=== PATIENT | male | born 1970 | race Caucasian/White ===

== ENCOUNTER 2024-05-27 14:23 | Inpatient (IN) | payer MEDICARE, OTHER ==
[~2024-05-27] VITALS: Ht 170.2 cm; Wt 68.0 kg
[2024-05-27 15:32] LABS: BASOPHILS % (AUTO) 0.5 % (0.0-2.0); EOSINOPHILS # (AUTO) 0.2 K/uL (0.0-0.7); EOSINOPHILS % (AUTO) 2.7 % (0.0-6.0); HEMATOCRIT 42 % (39-51); HEMOGLOBIN 14.7 g/dL (13.5-17.5); LYMPHOCYTES # (AUTO) 1.2 K/uL (0.8-4.8); LYMPHOCYTES % (AUTO) 17.7 % (20.0-44.0); MEAN CORPUSCULAR HEMOGLOBIN 35 PG (26.0-33.0); MEAN CORPUSCULAR HGB CONC 35 g/dl (31.0-36.0); MEAN CORPUSCULAR VOLUME 99 fL (80-96); MONOCYTES # (AUTO) 0.6 K/uL (0.1-1.30); NEUTROPHILS # (AUTO) 4.9 K/uL (1.8-8.9); NEUTROPHILS % (AUTO) 71.1 % (43.0-81.0); PLATELET COUNT (AUTO) 209 K/uL (150-450); RED BLOOD CELL COUNT(AUTO) 4.19 MIL/uL (4.5-6.0); RED CELL DISTRIBUTION WIDTH 14.2 % (11.5-15.0); WHITE BLOOD COUNT (AUTO) 6.9 K/uL (4.3-11.0)
[2024-05-27 15:56] LABS: CALCIUM, SERUM 9.2 mg/dL (8.5-10.1); CARBON DIOXIDE 29 mmol/L (21-32); CHLORIDE 107 mmol/L (98-107); CREATININE 1.1 mg/dL (0.6-1.3); GLUCOSE 63 mg/dL (74-106); SODIUM SERUM 142 mmol/L (136-145); UREA NITROGEN, BLOOD 16 mg/dL (7-18)
[2024-05-27 16:01] LABS: ALANINE AMINOTRANSFERASE 22 U/L (12-78); ALBUMIN 3.7 g/dL (3.4-5.0); ALCOHOL, BLOOD < 3 mg/dL (0-10); ALKALINE PHOSPHATASE 77 U/L (46-116); ASPARTATE AMINOTRANSFERASE 19 U/L (15-37); BILIRUBIN,DIRECT 0.1 mg/dL (0.0-0.2); BILIRUBIN,TOTAL 0.2 mg/dL (0.2-1.0); TOTAL PROTEIN, SERUM 6.8 g/dL (6.4-8.2)
[2024-05-27 16:02] LABS: ACETAMINOPHEN <10 ug/ml (10-30); SALICYLATE 1.4 mg/dL (2.8-20.0)
[2024-05-27] MEDS ORDERED: DIVA-76 PO (16:37)
[2024-05-27] MEDS ORDERED: DOCU100C36 PO (16:37)
[2024-05-27] MEDS ORDERED: CLOZ200T PO (16:37)
[2024-05-27] MEDS ORDERED: ACET325T53 PO (16:37)
[2024-05-27] MEDS ORDERED: BENZ-38 PO (16:37)
[2024-05-27] MEDS ORDERED: MAGN400O6 PO (16:37)
[2024-05-27] MEDS ORDERED: MAG30ORA PO (16:37)
[2024-05-27 16:50] LABS: APPEARANCE,URINE CLEAR (CLEAR); BILIRUBIN,URINE NEGATIVE (NEGATIVE); BLOOD, URINE NEGATIVE Ery/uL (NEGATIVE); COLOR,URINE YELLOW (YELLOW); KETONES,URINE NEGATIVE (NEGATIVE); LEUKOCYTE ESTERASE ,URINE NEGATIVE (NEGATIVE); NITRITE, URINE NEGATIVE (NEGATIVE); PH,URINE 6.5 (5.0-8.0); PROTEIN,URINE NEGATIVE (NEGATIVE); UGLUCOSE NEGATIVE (NEGATIVE); UROBILINOGEN,URINE 0.2 EU/dL (0.2)
[2024-05-27 17:07] LABS: AMPHETAMINE, URINE NEGATIVE (NEGATIVE); BARBITURATE, URINE NEGATIVE (NEGATIVE); CANNABINOID, URINE NEGATIVE (NEGATIVE); COCCAINE, URINE NEGATIVE (NEGATIVE); OPIATE, URINE NEGATIVE (NEGATIVE); PHENCYCLIDINE SCREEN,URINE NEGATIVE (NEGATIVE)
[2024-05-27] MEDS ORDERED: VALPROIC ACID 250 MG/5 ML UDC ONE (17:14)
[2024-05-27] MEDS: VALPROIC ACID 250 MG/5 ML UDC PO ONE (17:15)
[2024-05-27 17:16] LABS: BENZODIAZEPINE, URINE NEGATIVE (NEGATIVE)
[2024-05-27 20:09] VITALS: O2SAT 100
[2024-05-27 21:30] VITALS: BP 125/59; TEMP 97.9; O2SAT 98
[2024-05-27] MEDS ORDERED: MAG HYDROX/AL HYDROX/SIMETH 30 ML UDC PO PRN (22:00)
[2024-05-27] MEDS ORDERED: MAGNESIUM HYDROXIDE 30 ML UDC PO PRN (22:00)
[2024-05-27] MEDS ORDERED: ACETAMINOPHEN 325 MG TABLET PO PRN (22:00)
[2024-05-28] MEDS ORDERED: MAG HYDROX/AL HYDROX/SIMETH 30 ML UDC PO PRN
[2024-05-28] MEDS ORDERED: TEMAZEPAM 7.5 MG CAPSULE PO PRN ×2
[2024-05-28] MEDS ORDERED: ACETAMINOPHEN 325 MG TABLET PO PRN
[2024-05-28] MEDS ORDERED: MAGNESIUM HYDROXIDE 30 ML UDC PO PRN
[2024-05-28] MEDS: BLOOD SUGAR DIAGNOSTIC 1 EACH STRIP IN ONE (00:13)
[2024-05-28 07:44] LABS: CHOLESTEROL 175 mg/dL (<200); HDL CHOLESTEROL 56 mg/dL (40-60); LDL 85 mg/dL (0-99); TRIGLYCERIDES 80 mg/dL (30-150)
[2024-05-28 07:47] LABS: ALBUMIN 3.8 g/dL (3.4-5.0); BILIRUBIN,TOTAL 0.3 mg/dL (0.2-1.0); CREATININE 0.9 mg/dL (0.6-1.3); POTASSIUM 4.7 mmol/L (3.5-5.1); TOTAL PROTEIN, SERUM 7.2 g/dL (6.4-8.2)
[2024-05-28] MEDS: DOCUSATE SODIUM 100 MG CAPSULE PO SCH (08:33)
[2024-05-28 09:00] VITALS: BP 121/73; TEMP 97.9; O2SAT 100
[2024-05-28] MEDS ORDERED: LORAZEPAM 0.5 MG TABLET PO PRN ×2 (12:30)
[2024-05-28 16:00] VITALS: BP 109/63; TEMP 97.6; O2SAT 99
[2024-05-28 21:07] VITALS: BP 122/57; TEMP 97.8; O2SAT 100
[2024-05-28] MEDS: DIVALPROEX SODIUM 125 MG CAP.SPRINK PO SCH (21:31)
[2024-05-28] MEDS: CLOZAPINE 100 MG TABLET PO SCH (21:32)
[2024-05-29 08:00] VITALS: BP 100/65; TEMP 98.2; O2SAT 97
[2024-05-29 16:00] VITALS: BP 103/70; TEMP 97.7; O2SAT 98
[2024-05-29 20:53] VITALS: BP 103/56; TEMP 97.9; O2SAT 99
[2024-05-30 08:00] VITALS: BP 104/55; TEMP 98.6; O2SAT 98
[2024-05-30] MEDS: BENZONATATE 100 MG CAPSULE PO PRN (08:09)
[2024-05-30 16:00] VITALS: BP 107/62; TEMP 98.6; O2SAT 100
[2024-05-30 20:14] VITALS: BP 110/63; TEMP 98.6; O2SAT 100
[2024-05-30] MEDS: CLOZAPINE 100 MG TABLET PO SCH (21:09)
[2024-05-30] MEDS: DIVALPROEX SODIUM 500 MG TABLET.DR PO SCH (21:09)
[2024-05-31 08:00] VITALS: BP 106/69; TEMP 98.7; O2SAT 100
[2024-05-31 16:00] VITALS: BP 129/74; TEMP 98.1; O2SAT 98
[2024-05-31 20:00] VITALS: BP 114/69; TEMP 97.8; O2SAT 99
[2024-06-01 08:00] VITALS: BP 111/75; TEMP 98.1; O2SAT 98
[2024-06-01 15:58] VITALS: BP 113/65; TEMP 97.9; O2SAT 98
[2024-06-01 20:00] VITALS: BP 110/72; TEMP 98.5; O2SAT 99
[2024-06-02 08:00] VITALS: BP 105/66; TEMP 97.9; O2SAT 98
[2024-06-02] MEDS: DIVALPROEX SODIUM 500 MG TABLET.DR PO SCH (12:48)
[2024-06-02 16:00] VITALS: BP 108/70; TEMP 98.1; O2SAT 99
[2024-06-02 20:00] VITALS: BP 112/63; TEMP 98.1; O2SAT 100
[2024-06-02] MEDS: CLOZAPINE 100 MG TABLET PO SCH (21:38)
[2024-06-03 08:00] VITALS: BP 113/80; TEMP 98.1; O2SAT 99
[2024-06-03 16:00] VITALS: BP_SYST 113; BP_SYST 98; BP_DIAS 62; BP_DIAS 86; TEMP 97.7; TEMP 98; O2SAT 100; O2SAT 95
[2024-06-03 19:51] VITALS: BP 120/76; TEMP 98.5; O2SAT 100
[2024-06-04 07:05] LABS: BASOPHILS % (AUTO) 0.6 % (0.0-2.0); EOSINOPHILS # (AUTO) 0.2 K/uL (0.0-0.7); EOSINOPHILS % (AUTO) 5.2 % (0.0-6.0); HEMATOCRIT 45 % (39-51); HEMOGLOBIN 15.7 g/dL (13.5-17.5); LYMPHOCYTES # (AUTO) 1.5 K/uL (0.8-4.8); LYMPHOCYTES % (AUTO) 32.2 % (20.0-44.0); MEAN CORPUSCULAR HEMOGLOBIN 35 PG (26.0-33.0); MEAN CORPUSCULAR HGB CONC 35 g/dl (31.0-36.0); MEAN CORPUSCULAR VOLUME 99 fL (80-96); MONOCYTES # (AUTO) 0.4 K/uL (0.1-1.30); MONOCYTES % (AUTO) 9.4 % (2.0-12.0); NEUTROPHILS # (AUTO) 2.5 K/uL (1.8-8.9); NEUTROPHILS % (AUTO) 52.6 % (43.0-81.0); PLATELET COUNT (AUTO) 199 K/uL (150-450); RED BLOOD CELL COUNT(AUTO) 4.55 MIL/uL (4.5-6.0); WHITE BLOOD COUNT (AUTO) 4.7 K/uL (4.3-11.0)
[2024-06-04 08:00] VITALS: BP 128/74; TEMP 97.5; O2SAT 96
[2024-06-04 16:00] VITALS: BP 123/71; TEMP 97.9; O2SAT 96
[2024-06-04 20:25] VITALS: BP 134/63; TEMP 98.2; O2SAT 98
[2024-06-05 08:00] VITALS: BP 107/76; TEMP 98.2; O2SAT 100
[2024-06-05 16:00] VITALS: BP 111/69; TEMP 98.2; O2SAT 100
[2024-06-05 20:50] VITALS: BP 120/64; TEMP 98.3; O2SAT 98
[2024-06-06 08:00] VITALS: BP 114/79; TEMP 97.9; O2SAT 95
[2024-06-06 16:00] VITALS: BP 121/71; TEMP 98.2; O2SAT 100
[2024-06-06 20:35] VITALS: BP 133/74; TEMP 98.2; O2SAT 99
[2024-06-07 07:43] LABS: BASOPHILS % (AUTO) 0.6 % (0.0-2.0); EOSINOPHILS # (AUTO) 0.2 K/uL (0.0-0.7); EOSINOPHILS % (AUTO) 4.1 % (0.0-6.0); HEMATOCRIT 43 % (39-51); LYMPHOCYTES # (AUTO) 1.6 K/uL (0.8-4.8); LYMPHOCYTES % (AUTO) 29.7 % (20.0-44.0); MEAN CORPUSCULAR HEMOGLOBIN 35 PG (26.0-33.0); MEAN CORPUSCULAR HGB CONC 35 g/dl (31.0-36.0); MEAN CORPUSCULAR VOLUME 98 fL (80-96); MONOCYTES # (AUTO) 0.6 K/uL (0.1-1.30); NEUTROPHILS % (AUTO) 54.6 % (43.0-81.0); PLATELET COUNT (AUTO) 186 K/uL (150-450); RED BLOOD CELL COUNT(AUTO) 4.35 MIL/uL (4.5-6.0); RED CELL DISTRIBUTION WIDTH 14.1 % (11.5-15.0); WHITE BLOOD COUNT (AUTO) 5.5 K/uL (4.3-11.0)
[2024-06-07 08:00] VITALS: BP 110/75; TEMP 98.1; O2SAT 98
[2024-06-07 08:09] LABS: ALBUMIN 3.2 g/dL (3.4-5.0); BILIRUBIN,TOTAL 0.3 mg/dL (0.2-1.0); CALCIUM, SERUM 8.8 mg/dL (8.5-10.1); CREATININE 0.9 mg/dL (0.6-1.3); POTASSIUM 4.3 mmol/L (3.5-5.1); TOTAL PROTEIN, SERUM 6.4 g/dL (6.4-8.2)
[2024-06-07 16:00] VITALS: BP 125/76; TEMP 98.1; O2SAT 100
[2024-06-07 20:00] VITALS: BP 114/67; TEMP 98.3; O2SAT 100
[2024-06-08 08:00] VITALS: BP 121/75; TEMP 98.7; O2SAT 100
[2024-06-08 16:00] VITALS: BP 119/69; TEMP 98; O2SAT 100
[2024-06-08 20:00] VITALS: BP 107/66; TEMP 98.1; O2SAT 100
[2024-06-09 08:00] VITALS: BP 108/68; TEMP 98.1; O2SAT 100
[2024-06-09 16:00] VITALS: BP 107/64; TEMP 98.6; O2SAT 98
[2024-06-09 20:00] VITALS: BP 123/76; TEMP 98.2; O2SAT 100
[2024-06-10 08:00] VITALS: BP 113/79; TEMP 97.8; O2SAT 98
== END 2024-06-10 13:10 | DRG 885 ==
LOC: ER 14:30 → GPS 21:15
PROVIDERS: ADMIT Psychiatry & Neurology Psychosomatic Medicine; ATTEND Nurse Practitioner Family
DX: F25.0 Schizoaffective disorder, bipolar type (principal); F41.9 Anxiety disorder, unspecified; F32.A Depression, unspecified; G47.00 Insomnia, unspecified; Z79.899 Other long term (current) drug therapy; R27.9 Unspecified lack of coordination
CPT/HCPCS: 36415; 80048-TC; 80053-TC; 80061-TC; 80076-TC; 80164-TC; 82962-TC; 85025-TC; G0480